=== PATIENT | female | born 1960 | race Asian ===

== ENCOUNTER → 2016-10-22 | Outpatient (CLI) | payer BC ==
[~2016-10-22] MED LIST: HMLI SC; INSUINJ; PRENATA2 OR
== END | disposition home or self-care (01) ==
LOC: C.PAPS 12:22
PROVIDERS: ATTEND Physician Assistant
DX: Z01.419 Encounter for gynecological examination (general) (routine) without abnormal findings (principal)

== ENCOUNTER → 2016-11-22 | Outpatient (CLI) | payer BC ==
--- NOTE | 2016-11-22 15:59 | DIAGNOSTIC IMAGING REPORT ---
FUSION CT SINUSES W/O CLINICAL HISTORY: R51 Facial painTHREE MONTH HISTORY OF FACIAL PAIN IN HER MAXILLA COMPARISON STUDY: No previous studies for comparison. FINDINGS: No pathologic soft tissue masses are visualized on this noncontrast study. There is no hydrocephalus. There is mild bilateral maxilla sinus mucosal thickening right greater than left. The ostiomeatal units are widely patent bilaterally. The mastoid air cells are symmetrically aerated. Middle ear cavities appear well aerated. The frontal sinuses are relatively hypoplastic but clear. There is minimal mucosal thickening involving several ethmoid septa. There is trace mucosal thickening within the lateral aspect of the left sphenoid. The ethmoidal notches are protected. The olfactory fossa is measured 6 mm bilaterally. The frontoethmoidal recesses are patent bilaterally IMPRESSION: 1. Mild bilateral maxillary sinus thickening] 2. The ostiomeatal units are widely patent bilaterally Electronically signed by: Andrea Constantino M.D. 11/22/2016 3:58 PM Dictated Date/Time: 11/22/2016 2:04 PM
== END | disposition home or self-care (01) ==
LOC: C.CTS 13:22
PROVIDERS: ATTEND Physician Assistant
DX: R51 Headache (principal); J01.00 Acute maxillary sinusitis, unspecified